=== PATIENT | male | born 1940 | race Caucasian/White ===

== ENCOUNTER 2017-04-05 17:09 | Observation (INO) | payer MEDICARE, OTHER ==
[2017-04-05] VITALS (7 sets, daily range): BP systolic 108–142; BP diastolic 36–86; PULSE 91–123; TEMP 97.8–98.2
[~2017-04-05] VITALS: Ht 182.9 cm; Wt 98.2 kg
[2017-04-05] MEDS ORDERED: FOLBEE PO (18:33)
[2017-04-05] MEDS ORDERED: PRAVACHOL80 MG PO (18:33)
[2017-04-05] MEDS ORDERED: ASPIRIN E.C. 8181 MG PO (18:34)
[2017-04-05] MEDS ORDERED: NAMENDA 10MG TA10 MG PO (18:34)
[2017-04-05] MEDS ORDERED: MASON NATURAL1000 MG PO (18:35)
[2017-04-05] MEDS ORDERED: SLO-NIACIN250 MG PO (18:35)
[2017-04-05] MEDS ORDERED: SAW PALMETTO 101 SGL PO (18:36)
[2017-04-05] MEDS ORDERED: TRILIPIX 135MG PO (18:37)
[2017-04-05] MEDS ORDERED: ZYRTEC10MGSGL PO (18:37)
[2017-04-05] MEDS ORDERED: NATURAL IRON65 MG PO (18:39)
[2017-04-05] MEDS ORDERED: THE MEDICINE S200 M2 PO (18:39)
[2017-04-05] MEDS ORDERED: PROBIOTIC FORMU1 CAP PO (18:40)
[2017-04-05] MEDS ORDERED: MULTI VITAMINS1 TAB PO (18:40)
[2017-04-05] MEDS ORDERED: FLONASEALLERGY NS (18:41)
[2017-04-05] MEDS ORDERED: MAVIK2 MG PO (18:41)
[2017-04-06] VITALS (8 sets, daily range): BP systolic 91–128; BP diastolic 45–64; PULSE 86–103; TEMP 97.8–99.8
[2017-04-06 06:56] LABS: HEMOGLOBIN 12.2 g/dl (13.5-18.0); MEAN CELL VOLUME 90 fl (80.0-100.0); MEAN CORPUSCULAR HEMOGLOBIN 30 pg (27.0-31.0); MEAN CORPUSCULAR HGB CONC 33 g/dl (33.0-37.0); MEAN PLATELET VOLUME 9.7 fl (7.4-10.4); PLATELET COUNT 241 K/mm3 (130-400); RED BLOOD COUNT 4.09 M/mm3 (4.20-5.60); REDCELL DISTRIBUTION WIDTH-CV 14.2 % (11.5-14.5); WHITE BLOOD COUNT 11.5 K/mm3 (4.8-10.8)
[2017-04-06 07:11] LABS: ADD PATHOLOGY DIFF REVIEW NO; CALCIUM 9.1 mg/dL (8.4-10.2); CREATININE, serum 1.15 mg/dL (0.66-1.25); HEMATOCRIT 36.6 % (42.0-52.0); POTASSIUM 3.8 mmol/L (3.4-5.0)
[2017-04-06 07:45] LABS: BAND 46 % (0-10); METAMYELOCYTE 3 % (0-0); NEUTROPHILS 39 % (42.0-75.2); TOTAL CELLS COUNTED 100
[2017-04-07 04:36] VITALS: BP 107/46; PULSE 91; TEMP 99.2
[2017-04-07] MEDS ORDERED: AMOXICILLIN 8751 TAB PO (09:17)
[2017-04-07] MEDS ORDERED: NORCO 325 MG-51 TAB PO (09:19)
== END 2017-04-07 11:00 | disposition home or self-care (01) ==
LOC: COL.RAD 17:09 → SURG 18:25
PROVIDERS: Surgery
DX: K35.3 Acute appendicitis with localized peritonitis (principal); I10 Essential (primary) hypertension; G30.9 Alzheimer's disease, unspecified; F02.80 Dementia in other diseases classified elsewhere, unspecified severity, without behavioral disturbance, psychotic disturbance, mood disturbance, and anxiety
CPT/HCPCS: G0378; G0379; J0694; J1650; J2543; J2704; J2710; J3010; J7050; J7120; Q9967

== ENCOUNTER 2017-12-05 09:45 | Inpatient (IN) | payer MEDICARE, OTHER ==
[~2017-12-05] VITALS: Ht 182.9 cm; Wt 87.4 kg
[~2017-12-05 09:45] MED LIST: AMOXICILLIN 8751 TAB PO; ARICEPT10 MG PO; ASPIRIN E.C. 8181 MG PO; FLONASEALLERGY NS; FOLBEE PO; MASON NATURAL1000 MG PO; MAVIK2 MG PO; MULTI VITAMINS1 TAB PO; NAMENDA 10MG TA10 MG PO; NATURAL IRON65 MG PO; NORCO 325 MG-51 TAB PO; PRAVACHOL80 MG PO; PROBIOTIC FORMU1 CAP PO; SAW PALMETTO 101 SGL PO; SLO-NIACIN250 MG PO; THE MEDICINE S200 M2 PO; TRILIPIX 135MG PO; ZYRTEC10MGSGL PO
[2017-12-19] VITALS (15 sets, daily range): BP systolic 116–163; BP diastolic 55–86; PULSE 59–93; TEMP 97.2–98
[2017-12-19 06:20] LABS: BASO % 0.5 % (0.0-2.0); EOS # 0.3 (0.0-0.7); EOS % 4.3 % (0-4.0); GRAN # 3.6 (1.4-6.5); GRAN % 58.7 % (42.2-75.2); HEMATOCRIT 37.5 % (42.0-52.0); HEMOGLOBIN 12.7 g/dl (13.5-18.0); LYMPH # 1.5 (1.2-3.4); LYMPH % 24.7 % (20.0-51.0); MEAN CELL VOLUME 91 fl (80.0-100.0); MEAN CORPUSCULAR HEMOGLOBIN 31 pg (27.0-31.0); MEAN CORPUSCULAR HGB CONC 34 g/dl (33.0-37.0); MEAN PLATELET VOLUME 9.4 fl (7.4-10.4); MONO # 0.7 (0.1-0.6); MONO % 11.3 % (1.7-9.3); PLATELET COUNT 290 K/mm3 (130-400); RED BLOOD COUNT 4.12 M/mm3 (4.20-5.60); REDCELL DISTRIBUTION WIDTH-CV 14.3 % (11.5-14.5)
[2017-12-19 06:31] LABS: CREATININE, serum 1.32 mg/dL (0.66-1.25)
[2017-12-19] MEDS ORDERED: CHEWABLE-V1 TAB.CHEW PO (06:37)
[2017-12-19] MEDS ORDERED: IRON 27 MG PO (06:42)
[2017-12-19] MEDS ORDERED: PHARMASSURE SA160 MG PO (06:46)
[2017-12-19] MEDS ORDERED: AMOXICILLIN 8751 TAB PO (06:52)
[2017-12-19] MEDS ORDERED: BENADRYL25 M2 PO (06:53)
[2017-12-20 04:46] VITALS: BP 136/56; PULSE 82; TEMP 98.4
[2017-12-20 06:13] LABS: BASO % 0.2 % (0.0-2.0); EOS % 0.1 % (0-4.0); GRAN # 12.1 (1.4-6.5); GRAN % 85.8 % (42.2-75.2); HEMOGLOBIN 11.8 g/dl (13.5-18.0); LYMPH # 0.9 (1.2-3.4); LYMPH % 6.6 % (20.0-51.0); MEAN CELL VOLUME 91 fl (80.0-100.0); MEAN CORPUSCULAR HEMOGLOBIN 30 pg (27.0-31.0); MEAN CORPUSCULAR HGB CONC 33 g/dl (33.0-37.0); MEAN PLATELET VOLUME 9.3 fl (7.4-10.4); MONO % 6.8 % (1.7-9.3); PLATELET COUNT 312 K/mm3 (130-400); RED BLOOD COUNT 3.88 M/mm3 (4.20-5.60); REDCELL DISTRIBUTION WIDTH-CV 14.3 % (11.5-14.5)
[2017-12-20 06:14] LABS: HEMATOCRIT 35.3 % (42.0-52.0)
[2017-12-20 06:38] LABS: CALCIUM 9.2 mg/dL (8.4-10.2); CREATININE, serum 1.28 mg/dL (0.66-1.25); POTASSIUM 4.5 mmol/L (3.4-5.0)
[2017-12-20 07:19] VITALS: BP 128/75; PULSE 88; TEMP 98.5
[2017-12-20 12:07] VITALS: BP 118/71; PULSE 76; TEMP 97.8
== END 2017-12-20 14:30 | disposition home or self-care (01) | DRG 661 ==
LOC: INPTSU 12-19 05:27 → SURG 12-19 07:00
PROVIDERS: Radiology Diagnostic Radiology; Urology
PROC: 0T9080Z Drainage of Right Kidney with Drainage Device, Via Natural or Artificial Opening Endoscopic (ICD-10-PCS; 2017-12-19)
PROC: 0T764DZ Dilation of Right Ureter with Intraluminal Device, Percutaneous Endoscopic Approach (ICD-10-PCS; 2017-12-19)
PROC: BT1DZZZ Fluoroscopy of Right Kidney, Ureter and Bladder (ICD-10-PCS; 2017-12-19)
PROC: 0TC38ZZ Extirpation of Matter from Right Kidney Pelvis, Via Natural or Artificial Opening Endoscopic (ICD-10-PCS; principal; 2017-12-19 15:00)
DX: N20.0 Calculus of kidney (principal); I10 Essential (primary) hypertension; Z85.47 Personal history of malignant neoplasm of testis
CPT/HCPCS: A4314; A9284; C1726; C1758; C1769; C1894; C2617; J0690; J1100; J2250; J2405; J2704; J3010; J7120; Q9967